=== PATIENT | female | born 1995 | race African-American/Black ===

== ENCOUNTER 2021-03-08 13:02 | Emergency (ER) | payer SELFPAY ==
[~2021-03-08] VITALS: Ht 175.3 cm; Wt 56.0 kg
[2021-03-08] MEDS ORDERED: ALBUTEROL (0.083%) 2.5MG/3ML NEB HHN STA (15:04)
[2021-03-08] MEDS ORDERED: IPRATROPIUM BROMIDE (0.02%) 0.5MG/2.5ML NEB HHN STA (15:04)
[2021-03-08] MEDS ORDERED: PREDNISONE 20MG TABLET PO STA (15:04)
[2021-03-08] MEDS ORDERED: FLUT12AE7 INH (15:17)
[2021-03-08] MEDS ORDERED: ALBU6.7H9 INH (15:17)
[2021-03-08 15:19] LABS: BASOPHILS % 0.3 % (0.0-2.0); EOSINOPHILS % 1.3 % (0.0-5.0); HEMATOCRIT. 38.9 % (36.0-48.0); HEMOGLOBIN. 13.3 g/dL (12.0-16.0); LYMPHOCYTES % 24.9 % (20.0-50.0); MEAN CORPUSCULAR VOLUME 87.9 fL (81.0-99.0); MONOCYTES % 4.7 % (2.0-8.0); NEUTROPHILS % 68.8 % (40.0-76.0); PLATELET 333 x1000/uL (130-400); RED BLOOD CELL COUNT 4.42 mill/uL (4.2-5.4); RED CELL DISTRIBUTION WIDTH 13.7 % (11.6-14.6)
[2021-03-08 15:27] LABS: CHLORIDE 111 mEq/L (98-107)
[2021-03-08 16:08] VITALS: BP 118/72
== END 2021-03-08 16:26 | disposition home or self-care (01) ==
LOC: ER 13:02
DX: J45.909 Unspecified asthma, uncomplicated (principal); R07.89 Other chest pain
CPT/HCPCS: 36415; 71045; 80053; 81025; 84484; 85025; 85379; 93005; 99285; J7512